=== PATIENT | male | born 2000 | race Caucasian/White ===

== ENCOUNTER 2024-02-19 15:26 | Emergency (ER) | payer OTHER ==
[~2024-02-19] VITALS: Ht 177.8 cm; Wt 72.6 kg
[2024-02-19 15:40] VITALS: PULSE 88; RESP 15; TEMP 97; O2SAT 98
[2024-02-19] MEDS ORDERED: IBUP-1969 PO (16:23)
[2024-02-19] MEDS ORDERED: ACET-2634 PO (16:23)
[2024-02-19 16:50] VITALS: BP_SYST 122; PULSE 80; RESP 15; TEMP 97; O2SAT 98
== END 2024-02-19 16:51 | disposition home or self-care (01) ==
LOC: SED 15:26
DX: S13.8XXA Sprain of joints and ligaments of other parts of neck, initial encounter (principal); M47.812 Spondylosis without myelopathy or radiculopathy, cervical region; Z79.899 Other long term (current) drug therapy; V89.2XXA Person injured in unspecified motor-vehicle accident, traffic, initial encounter; Y93.89 Activity, other specified; Y92.89 Other specified places as the place of occurrence of the external cause; Y99.8 Other external cause status
CPT/HCPCS: 72125-TC; 99284